=== PATIENT | female | born 1980 | race American Indian/Alaskan Native ===

== ENCOUNTER 2018-06-14 19:40 | Emergency (ER) | payer SELFPAY ==
[2018-06-14] MEDS ORDERED: ASPIRIN PO ONE (19:59)
[2018-06-14 20:31] LABS: Basophils % (Auto) 0.7 % (0.0-1.8); Eosinophils # (Auto) 0.3 K/mm3 (0.0-0.4); Eosinophils % (Auto) 4.8 % (0.0-4.3); Hematocrit 36.9 % (30.3-42.9); Lymphocytes # (Auto) 2.8 K/mm3 (1.2-5.4); Lymphocytes % (Auto) 44.2 % (13.4-35.0); Mean Corpuscular HGB Conc 33 % (30-34); Mean Corpuscular Hemoglobin 27 pg (28-32); Mean Corpuscular Volume 84 fl (79-97); Monocytes # (Auto) 0.4 K/mm3 (0.0-0.8); Monocytes % (Auto) 6.9 % (0.0-7.3); Platelet Count 351 K/mm3 (140-440); Red Blood Count 4.41 M/mm3 (3.65-5.03); Red Cell Distribution Width 16.7 % (13.2-15.2)
[2018-06-14 20:46] LABS: BUN/Creatinine Ratio 12; Blood Urea Nitrogen 12 mg/dL (7-17); Calcium 9.1 mg/dL (8.4-10.2); Hemolysis Index 2
[2018-06-15] MEDS ORDERED: REGLAN IV ONE (01:03)
[2018-06-15] MEDS ORDERED: TORADOL IV ONE (01:03)
[2018-06-15] MEDS ORDERED: NACL 0.9% 1000 ML 1,000 ML IV ONE (01:03)
[2018-06-15] MEDS ORDERED: BENADRYL IV ONE (01:03)
--- NOTE | 2018-06-15 01:42 | Cat Scan Report ---
FINAL REPORT PROCEDURE: CT HEAD/BRAIN WO CON TECHNIQUE: Computerized tomography of the head was performed without contrast material. HISTORY: right sided bermudez, light sensitivity, n/v COMPARISON: No prior studies are available for comparison. FINDINGS: Skull and scalp: Normal. Paranasal sinuses: Normal. Ventricles and subarachnoid spaces: Normal. Cerebrum: No evidence of hemorrhage, acute infarction or mass . Cerebellum and brainstem: No evidence of hemorrhage, acute infarction or mass. Vasculature: Normal. Comments: None. IMPRESSION: Normal Examination
--- NOTE | 2018-06-15 01:48 | Emergency Department Report ---
ED Headache HPI - General Chief Complaint: Chest Pain Stated Complaint: CHEST PAIN Time Seen by Provider: 06/15/18 00:57 Source: patient Exam Limitations: no limitations - History of Present Illness Initial Comments: 37-year-old female with past medical history of asthma presents to the hospital with complaints of sudden onset of sternal sharp chest pain and right-sided headache approximately 9 AM. Sternal chest pain is sharp, rated 9/10 in intensity, intermittent, worse palpation and movement. Mild shortness of breath earlier that has since resolved. She denies history of PE/DVT, calf tenderness or edema, recent long distance, or control pill use. Patient does complain of a sharp shooting right-sided headache that has been constant since onset. Positive light sensitivity, nausea, and one episode of vomiting. No blurred vision or focal numbness or weakness. Patient denies history of migraines, headache, fever, neck pain, or recent head injury. Allergies/Adverse Reactions: Allergies tomato Allergy (Verified 06/14/18 19:59) Swelling Home Medications: Ambulatory Orders Butalb/Acetamin/Caff 50-325-40 [Fioricet] 1 tab PO Q6HR PRN #20 tab 06/15/18 Ibuprofen [Motrin] 800 mg PO Q8HR PRN #30 tablet 06/15/18 Ondansetron [Zofran Odt] 4 mg PO Q8HR PRN #20 tab.rapdis 06/15/18 ED Review of Systems ROS: Stated complaint: CHEST PAIN Other details as noted in HPI Comment: All other systems reviewed and negative ED Past Medical Hx - Past Medical History Previous Medical History?: Yes Hx Asthma: Yes - Surgical History Past Surgical History?: No - Social History Smoking Status: Never Smoker Substance Use Type: None - Medications Home Medications: Home Medications Medication Instructions Recorded Confirmed Last Taken Type Butalb/Acetamin/Caff 50-325-40 1 tab PO Q6HR PRN #20 tab 06/15/18 Unknown Rx [Fioricet] Ibuprofen [Motrin] 800 mg PO Q8HR PRN #30 tablet 06/15/18 Unknown Rx Ondansetron [Zofran Odt] 4 mg PO Q8HR PRN #20 tab.rapdis 06/15/18 Unknown Rx ED Physical Exam - General Limitations: No Limitations - Other Other exam information: General: No limitations, patient is alert in no acute distress Head exam: Atraumatic, normocephalic, no sinus tenderness Eyes exam: Normal appearance, pupils equal reactive to light, extraocular movements intact ENT: Moist mucous membrane, normal oropharynx Neck exam: Normal inspection, full range of motion, no meningismus nontender Respiratory exam: Clear to auscultation bilateral, no wheezes, rales, crackles. Reproducible sternal chest wall tenderness Cardiovascular: Normal rate and rhythm, normal heart sounds Abdomen: Soft, nondistended, and nontender, with normal bowel sounds, no rebound, or guarding Extremity: Full range of motion normal inspection no deformity, no calf tenderness or edema Back: Normal Inspection, full range of motion, no tenderness Neurologic: Alert, oriented x3, cranial nerves intact, no motor or sensory deficit Psychiatric: normal affect, normal mood Skin: Warm, dry, intact ED Course Vital Signs 06/14/18 06/15/18 06/15/18 19:55 00:25 00:30 Temperature 98.6 F Pulse Rate 77 69 80 Respiratory 18 20 19 Rate Blood Pressure 111/76 108/69 O2 Sat by Pulse 98 99 99 Oximetry 06/15/18 06/15/18 06/15/18 00:46 01:00 01:16 Temperature Pulse Rate 78 82 70 Respiratory 20 17 18 Rate Blood Pressure 108/69 123/61 108/69 O2 Sat by Pulse 95 100 100 Oximetry 06/15/18 06/15/18 02:11 02:16 Temperature Pulse Rate Respiratory Rate Blood Pressure 108/69 98/82 O2 Sat by Pulse 84 99 Oximetry ED Medical Decision Making - Lab Data Result diagrams: 06/14/18 20:02 06/14/18 20:02 Lab Results 06/14/18 06/14/18 06/14/18 Range/Units 20:02 20:02 23:10 WBC 6.4 (4.5-11.0) K/mm3 RBC 4.41 (3.65-5.03) M/mm3 Hgb 12.0 (10.1-14.3) gm/dl Hct 36.9 (30.3-42.9) % MCV 84 (79-97) fl MCH 27 L (28-32) pg MCHC 33 (30-34) % RDW 16.7 H (13.2-15.2) % Plt Count 351 (140-440) K/mm3 Lymph % (Auto) 44.2 H (13.4-35.0) % Garrard % (Auto) 6.9 (0.0-7.3) % Eos % (Auto) 4.8 H (0.0-4.3) % Baso % (Auto) 0.7 (0.0-1.8) % Lymph # 2.8 (1.2-5.4) K/mm3 Garrard # 0.4 (0.0-0.8) K/mm3 Eos # 0.3 (0.0-0.4) K/mm3 Baso # 0.0 (0.0-0.1) K/mm3 Seg Neutrophils % 43.4 (40.0-70.0) % Seg Neutrophils # 2.8 (1.8-7.7) K/mm3 Sodium 137 (137-145) mmol/L Potassium 3.6 (3.6-5.0) mmol/L Chloride 99.2 (98-107) mmol/L Carbon Dioxide 24 (22-30) mmol/L Anion Gap 17 mmol/L BUN 12 (7-17) mg/dL Creatinine 1.0 (0.7-1.2) mg/dL Estimated GFR > 60 ml/min BUN/Creatinine Ratio 12 % Glucose 85 (65-100) mg/dL Calcium 9.1 (8.4-10.2) mg/dL Troponin T < 0.010 < 0.010 (0.00-0.029) ng/mL - Radiology Data Radiology results: report reviewed PROCEDURE: CT HEAD/BRAIN WO CON TECHNIQUE: Computerized tomography of the head was performed without contrast material. HISTORY: right sided bermudez, light sensitivity, n/v COMPARISON: No prior studies are available for comparison. FINDINGS: Skull and scalp: Normal. Paranasal sinuses: Normal. Ventricles and subarachnoid spaces: Normal. Cerebrum: No evidence of hemorrhage, acute infarction or mass . Cerebellum and brainstem: No evidence of hemorrhage, acute infarction or mass. Vasculature: Normal. Comments: None. IMPRESSION: Normal Examination FINAL REPORT PROCEDURE: XR CHEST ROUTINE 2V TECHNIQUE: PA and lateral chest radiographs were obtained. CPT 28591 HISTORY: cp COMPARISON: No prior studies are available for comparison. FINDINGS: Heart: Normal. Mediastinum/Vessels: Normal. Lungs/Pleural space: Normal. Bony thorax: No acute osseous abnormality. Other: IMPRESSION: Normal examination. - Medical Decision Making headache CT head shows naf Patient treated with migraine cocktail including Reglan, Benadryl, Toradol, and normal saline Pain improved Chest pain Reproducible without associated symptoms and no PE risk for, normal pulse ox and resp rate Chest x-ray naf Treated with Toradol with improvebnt f/u will be encouraged - Differential Diagnosis costochondritis, pneumothorax, PE, migraine, sinusitis, headache nos Critical Care Time: No Critical care attestation.: If time is entered above; I have spent that time in minutes in the direct care of this critically ill patient, excluding procedure time. ED Disposition Clinical Impression: Unilateral headache, Costochondritis, acute Disposition: - TO HOME OR SELFCARE Is pt being admited?: No Does the pt Need Aspirin: No Condition: Stable Instructions: Acute Headache (ED), Costochondritis (ED) Additional Instructions: Take the medication as prescribed and as needed for pain. Follow-up with the primary care doctor provider or the doctor of your choice. Return if symptoms worsen as indicated by your discharge instructions. Prescriptions: Butalb/Acetamin/Caff 50-325-40 [Fioricet] 1 tab PO Q6HR PRN #20 tab PRN Reason: Headache Ibuprofen [Motrin] 800 mg PO Q8HR PRN #30 tablet PRN Reason: Pain, Moderate (4-6) Ondansetron [Zofran Odt] 4 mg PO Q8HR PRN #20 tab.rapdis PRN Reason: Nausea And Vomiting Referrals: MICHAEL DE LEON MD [Primary Care Provider] - 3-5 Days [facility] [Provider Group] - 3-5 Days AGUEDA GUTIERREZ MD [Staff Physician] - 3-5 Days Forms: Work/School Release Form(ED) Time of Disposition: 03:39
--- NOTE | 2018-06-15 01:50 | XRay Report ---
FINAL REPORT PROCEDURE: XR CHEST ROUTINE 2V TECHNIQUE: PA and lateral chest radiographs were obtained. CPT 99155 HISTORY: cp COMPARISON: No prior studies are available for comparison. FINDINGS: Heart: Normal. Mediastinum/Vessels: Normal. Lungs/Pleural space: Normal. Bony thorax: No acute osseous abnormality. Other: IMPRESSION: Normal examination.
[2018-06-15] MEDS ORDERED: ASPIRIN ONE (02:06)
[2018-06-15 03:52] VITALS: BP 97/57
== END 2018-06-15 04:00 | disposition home or self-care (01) ==
LOC: ED 19:40
DX: M94.0 Chondrocostal junction syndrome [Tietze] (principal); R51 Headache; R11.2 Nausea with vomiting, unspecified; J45.909 Unspecified asthma, uncomplicated; Z91.018 Allergy to other foods
CPT/HCPCS: 36415; 70450; 71046; 80048; 84484; 85025; 93005; 93010; 96361; 96374; 96375; 99285; J1200; J1885; J2765; J7030

== ENCOUNTER 2018-07-14 10:37 | Emergency (ER) | payer SELFPAY ==
[2018-07-14] MEDS ORDERED: ZOFRAN IV ONE (11:25)
[2018-07-14] MEDS ORDERED: MORPHINE IV ONE (11:25)
[2018-07-14] MEDS ORDERED: PEPCID IV ONE (11:25)
[2018-07-14] MEDS ORDERED: TORADOL IV ONE (11:25)
[2018-07-14] MEDS ORDERED: NACL 0.9% 1000 ML 1,000 ML IV ONE (11:25)
[2018-07-14 12:04] LABS: Basophils # (Auto) 0.1 K/mm3 (0.0-0.1); Basophils % (Auto) 1.3 % (0.0-1.8); Eosinophils # (Auto) 0.3 K/mm3 (0.0-0.4); Hematocrit 37.7 % (30.3-42.9); Hemoglobin 12.4 gm/dl (10.1-14.3); Lymphocytes # (Auto) 3.1 K/mm3 (1.2-5.4); Mean Corpuscular HGB Conc 33 % (30-34); Mean Corpuscular Hemoglobin 28 pg (28-32); Mean Corpuscular Volume 85 fl (79-97); Monocytes # (Auto) 0.6 K/mm3 (0.0-0.8); Monocytes % (Auto) 7.9 % (0.0-7.3); Platelet Count 376 K/mm3 (140-440); Red Blood Count 4.45 M/mm3 (3.65-5.03); Red Cell Distribution Width 16.1 % (13.2-15.2)
[2018-07-14 12:24] LABS: Alanine Aminotransferase 7 units/L (7-56); Albumin 4.4 g/dL (3.9-5); BUN/Creatinine Ratio 14; Blood Urea Nitrogen 13 mg/dL (7-17); Calcium 8.7 mg/dL (8.4-10.2); Hemolysis Index 9
--- NOTE | 2018-07-14 12:36 | Emergency Department Report ---
Blank Doc - Documentation Documentation: Patient is a 38-year-old asthmatic female who is complaining of right lower quadrant pain nausea vomiting the past 2 days. Patient denies any fevers or diarrhea. Patient states the sharp pain is constant. Brief focused physical exam patient has tenderness in the right lower quadrant guarding. Patient be sent for CT will be drawn and a urinalysis will be sent.
[2018-07-14 12:37] LABS: Bilirubin,Urine NEG (Negative); Blood,Urine MOD (Negative); Color,Urine Yellow (Yellow); Mucus,Urine 1+ /HPF; Protein,Urine <15 mg/dL mg/dL (Negative)
--- NOTE | 2018-07-14 12:46 | Emergency Department Report ---
ED Abdominal Pain HPI - General Chief Complaint: Abdominal Pain Stated Complaint: ADB PAIN, RIGHT SHOULDER PAIN Time Seen by Provider: 07/14/18 11:22 Source: patient Mode of arrival: Ambulatory Limitations: No Limitations - History of Present Illness Initial Comments: This is a 38-year-old female nontoxic, well nourished in appearance, no acute signs of distress presents to the ED with c/o of nausea and right lower abdominal pain 2 days. Patient denies any vomiting. Stated only has nausea. Patient describes abdominal pain as cramping and aching with level of 3/10. Patient denies any radiation of pain. Patient denies chest pain, short of breath, fever, chills, headache, stiff neck, numbness or tingling. Patient denies any diarrhea or constipation. Patient denies any vaginal bleeding or discharge. Patient denies any recent travels. Patient denies any drug allergies. MD Complaint: abdominal pain -: days(s) (2) Location: RLQ Radiation: none Migration to: no migration Severity: mild Severity scale (0 -10): 3 Quality: cramping Consistency: constant Improves With: nothing Worsens With: nothing Associated Symptoms: nausea. denies: vomiting, diarrhea, fever, chills, constipation, dysuria, hematemesis, hematochezia, melena, hematuria, anorexia, syncope - Related Data Previous Rx's Medication Instructions Recorded Last Taken Type Butalb/Acetamin/Caff 50-325-40 1 tab PO Q6HR PRN #20 tab 06/15/18 Unknown Rx [Fioricet] Ibuprofen [Motrin] 800 mg PO Q8HR PRN #30 tablet 06/15/18 Unknown Rx Ondansetron [Zofran Odt] 4 mg PO Q8HR PRN #20 tab.rapdis 06/15/18 Unknown Rx Docusate Sodium [Colace] 100 mg PO BID PRN #30 capsule 07/14/18 Unknown Rx Ibuprofen [Motrin] 600 mg PO Q8H PRN #30 tablet 07/14/18 Unknown Rx Ondansetron [Zofran Odt] 4 mg PO Q8HR PRN #20 tab.rapdis 07/14/18 Unknown Rx Allergies Allergy/AdvReac Type Severity Reaction Status Date / Time tomato Allergy Swelling Verified 06/14/18 19:59 ED Review of Systems ROS: Stated complaint: ADB PAIN, RIGHT SHOULDER PAIN Other details as noted in HPI Constitutional: denies: chills, fever Eyes: denies: eye pain, eye discharge, vision change ENT: denies: ear pain, throat pain Respiratory: denies: cough, shortness of breath, wheezing Cardiovascular: denies: chest pain, palpitations Endocrine: no symptoms reported Gastrointestinal: abdominal pain, nausea. denies: vomiting, diarrhea, constipation, hematemesis Genitourinary: denies: urgency, dysuria, discharge Musculoskeletal: denies: back pain, joint swelling, arthralgia Skin: denies: rash, lesions Neurological: denies: headache, weakness, paresthesias Psychiatric: denies: anxiety, depression Hematological/Lymphatic: denies: easy bleeding, easy bruising ED Past Medical Hx - Past Medical History Previous Medical History?: Yes Hx Asthma: Yes - Surgical History Past Surgical History?: No - Social History Smoking Status: Never Smoker Substance Use Type: None - Medications Home Medications: Home Medications Medication Instructions Recorded Confirmed Last Taken Type Butalb/Acetamin/Caff 50-325-40 1 tab PO Q6HR PRN #20 tab 06/15/18 Unknown Rx [Fioricet] Ibuprofen [Motrin] 800 mg PO Q8HR PRN #30 tablet 06/15/18 Unknown Rx Ondansetron [Zofran Odt] 4 mg PO Q8HR PRN #20 tab.rapdis 06/15/18 Unknown Rx Docusate Sodium [Colace] 100 mg PO BID PRN #30 capsule 07/14/18 Unknown Rx Ibuprofen [Motrin] 600 mg PO Q8H PRN #30 tablet 07/14/18 Unknown Rx Ondansetron [Zofran Odt] 4 mg PO Q8HR PRN #20 tab.rapdis 07/14/18 Unknown Rx ED Physical Exam - General Limitations: No Limitations General appearance: alert, in no apparent distress - Head Head exam: Present: atraumatic, normocephalic - Eye Eye exam: Present: normal appearance Pupils: Present: normal accommodation - ENT ENT exam: Present: normal exam, mucous membranes moist - Neck Neck exam: Present: normal inspection, full ROM. Absent: tenderness, meningismus, lymphadenopathy - Respiratory Respiratory exam: Present: normal lung sounds bilaterally. Absent: respiratory distress, wheezes, rales, rhonchi, stridor, chest wall tenderness, accessory muscle use, decreased breath sounds, prolonged expiratory - Cardiovascular Cardiovascular Exam: Present: regular rate, normal rhythm, normal heart sounds. Absent: bradycardia, tachycardia, irregular rhythm, systolic murmur, diastolic murmur, rubs, gallop - GI/Abdominal GI/Abdominal exam: Present: soft, tenderness (RLQ), normal bowel sounds. Absent : distended, guarding, rebound, rigid, diminished bowel sounds, hyperactive bowel sounds, hypoactive bowel sounds, organomegaly, mass, bruit, pulsatile mass , hernia - Expanded GI/Abdominal Exam Expanded GI/Abdominal exam: Absent: psoas sign, obturator sign, heel tap sign, Wilkinson's sign, Rovsing's sign, tenderness at Mcburney's Point, ascites - Rectal Rectal exam: Present: deferred - Extremities Exam Extremities exam: Present: normal inspection, full ROM, normal capillary refill. Absent: tenderness - Back Exam Back exam: Present: normal inspection, full ROM. Absent: tenderness, CVA tenderness (R), CVA tenderness (L), muscle spasm, paraspinal tenderness, vertebral tenderness, rash noted - Neurological Exam Neurological exam: Present: alert, oriented X3, normal gait - Psychiatric Psychiatric exam: Present: normal affect, normal mood - Skin Skin exam: Present: warm, dry, intact, normal color. Absent: rash ED Course Vital Signs 07/14/18 10:47 Temperature 98.6 F Pulse Rate 76 Respiratory 18 Rate Blood Pressure 110/62 O2 Sat by Pulse 100 Oximetry - Reevaluation(s) Reevaluation #1: 07/14/18 12:49 Patient is speaking in full sentences with no signs of distress noted. - Consultations Consultation #1: 07/14/18 12:49 Patient has been consulted with Alf Ortez about patient history, physical exam, and labs and examined and screened patient and agrees to ED plan of care. ED Medical Decision Making - Lab Data Result diagrams: 07/14/18 11:45 07/14/18 11:45 - Medical Decision Making This is a 38-year-old female that presents with constipation, uterine fibroids and nausea. Patient is stable and was examined by me and Alf Ortez. There is slight abdominal tenderness. Negative signs of symptoms of appendicitis. Labs obtained. UA obtained. CT with contrast of abdomen obtained and dictated by the radiologist. Patient is notified of the report with no questions noted by the patient. Vital signs are stable prior to discharge. Patient received 1L normal saline, morphine, pepcid, and Zofran in the ED which patient stated symptoms has resolved and subsided. A by mouth challenge has been obtained and patient tolerated well with no nausea vomiting. Patient was notified of strict precautions of appendicitis symptoms and to return to the ED if symptoms occurs as soon as possible. Patient was also instructed to Follow-up with a primary care doctor in 3-5 days or if symptoms worsen and continue return to emergency room as soon as possible. At time of discharge, the patient does not seem toxic or ill in appearance. No acute signs of distress noted. Patient agrees to discharge treatment plan of care. No further questions noted by the patient. Critical care attestation.: If time is entered above; I have spent that time in minutes in the direct care of this critically ill patient, excluding procedure time. ED Disposition Clinical Impression: Nausea Uterine fibroid Qualifiers: Uterine leiomyoma location: unspecified location Qualified Code(s): D25.9 - Leiomyoma of uterus, unspecified Constipation Qualifiers: Constipation type: unspecified constipation type Qualified Code(s): K59.00 - Constipation, unspecified Abdominal pain Qualifiers: Abdominal location: right upper quadrant Qualified Code(s): R10.11 - Right upper quadrant pain Disposition: DC-01 TO HOME OR SELFCARE Is pt being admited?: No Does the pt Need Aspirin: No Condition: Stable Instructions: Abdominal Pain (ED) Additional Instructions: Follow-up with a primary care doctor in 3-5 days or if symptoms worsen and continue return to emergency room as soon as possible. Prescriptions: Docusate Sodium [Colace] 100 mg PO BID PRN #30 capsule PRN Reason: Constipation Ibuprofen [Motrin] 600 mg PO Q8H PRN #30 tablet PRN Reason: Pain Ondansetron [Zofran Odt] 4 mg PO Q8HR PRN #20 tab.rapdis PRN Reason: Nausea Referrals: PRIMARY CARE, [Primary Care Provider] - 3-5 Days AGUEDA THOMPSON MD [Staff Physician] - 3-5 Days [facility] [Outside] - 3-5 Days [facility] [Outside] - 3-5 Days Forms: Work/School Release Form(ED)
--- NOTE | 2018-07-14 13:20 | Cat Scan Report ---
CT ABDOMEN PELVIS WITH CONTRAST: HISTORY: Right lower quadrant abdominal pain. COMPARISON: none. TECHNIQUE: Helical CT in 1.25mm intervals following IV contrast. Sagittal and coronal reconstructions. FINDINGS: Lung bases: Normal. Liver: Normal. Biliary system: Normal. Pancreas: Normal. Spleen: Normal. Kidneys/ureters/bladder: Normal. Adrenal glands: Normal. Aorta: Normal. Intestines: No oral contrast which was administered which limits this exam. There is moderate fecal retention in the colon. No evidence for obstruction or focal inflammation. Appendix: Normal. Pelvic viscera: An approximate 5 cm subserosal fibroid is identified in the anterior wall of the uterus. No cystic change or calcifications although there is decreased enhancement of the fibroid compared to adjacent myometrium. The remainder of the uterus and bilateral ovaries are within normal limits. Ascites: None. Adenopathy: None. Musculoskeletal: Normal. IMPRESSION: Normal appendix. Uterine fibroid as described. Mild fecal retention.
[2018-07-14 14:01] VITALS: BP 132/72
== END 2018-07-14 14:00 | disposition home or self-care (01) ==
LOC: ED 10:37
DX: D25.9 Leiomyoma of uterus, unspecified (principal); K59.00 Constipation, unspecified; R10.11 Right upper quadrant pain
CPT/HCPCS: 36415; 74177; 80053; 81001; 84703; 85025; 96361; 96374; 96375; 99284; J1885; J2270; J2405; J7030; Q9967